=== PATIENT | female | born 1970 | race Caucasian/White ===

== ENCOUNTER 2021-06-17 16:50 | Inpatient (IN) ==
[2021-06-17] MEDS ORDERED: *HR* Heparin 5,000 UNIT/ML VIAL IVP PRN ×2 (23:03)
[2021-06-17] MEDS ORDERED: *HR* Heparin 5,000 UNIT/ML VIAL IVP ONE (23:03)
[2021-06-18 00:36] LABS: Heparin anti-factor XA UFH 0.39 IU/mL (0.30-0.70)
[2021-06-18 00:37] LABS: Hematocrit 35.2 % (35.3-44.9); INR 1.1; Mean Corpuscular HGB Conc 34.1 g/dL (31.6-35.5); Mean Corpuscular Hemoglobin 30.5 pg (28.0-33.3); Mean Corpuscular Volume 89.3 fL (83.0-100.0); Mean Platelet Volume 12.9 fL (9.4-12.4); Platelet Count 263 K/mcL (140-400); Prothrombin Time 12.3 Seconds (9.4-12.1); Red Blood Count 3.94 M/mcL (3.82-4.97); Red Cell Distribution Width 11.4 % (11.5-14.5)
[2021-06-18] MEDS: Heparin 25,000UNIT/250ML 1/2NS 25,000 UNIT/250 ML IV.SOLN IVC SCH ×2 (00:44→19:32)
[2021-06-18] MEDS ORDERED: Naloxone 0.4 MG/ML INJ IVP PRN (01:08)
[2021-06-18] MEDS ORDERED: Perflutren Lipid Microsphere 1.3 ML in 0.9 % Sodium Chloride 8.7 ML IVP PRN (02:02)
[2021-06-18] MEDS ORDERED: Nitroglycerin 0.4 MG TAB.SUBL SL PRN (02:02)
[2021-06-18 02:46] LABS: Alanine Aminotransferase 20 Units/L (7-52); Albumin/Globulin Ratio 1.3 (1.1-2.2); Alkaline Phosphatase 36 Units/L (34-104); Aspartate Amino Transferase 21 Units/L (13-39); BUN/Creatinine Ratio 15 (6-26); Bilirubin,Total 0.3 mg/dL (0.3-1.0); Blood Urea Nitrogen 12 mg/dL (6-20); Calcium 8.4 mg/dL (8.6-10.3); Carbon Dioxide 26 mEq/L (23-29); Chloride 107 mEq/L (98-107); Chol/HDL Ratio 5.2 (0-4.9); Cholesterol 173 mg/dL (< 200); Globulin 3.1 g/dL (2.4-3.5); Glucose 94 mg/dL (70-105); HDL Cholesterol 33 mg/dL (40-59); LDL Cholesterol,Calculated 76 mg/dL (< 100); Magnesium 2.1 mg/dL (1.6-2.6); Osmolality,Calculated 292 (280-300); Potassium 3.8 mEq/L (3.5-5.1); Sodium 141 mEq/L (136-145); Total Protein 7.1 g/dL (6.4-8.9); Triglycerides 322 mg/dL (< 150); Troponin I 1.12 ng/mL (< 0.04); eGFR For African Americans > 60 (> 60); eGFR For Non-African Americans > 60 (> 60)
[2021-06-18] MEDS ORDERED: D5% in Water 1,000 ML IVC PRN (02:50)
[2021-06-18] MEDS ORDERED: *HR* Dextrose 50 % in Water (Vial) 50 ML VIAL IVP PRN (02:50)
[2021-06-18] MEDS ORDERED: Dextrose Gel 15 GM/37.5 ML TUBE PO PRN ×2 (02:50)
[2021-06-18 03:19] LABS: Estimated Average Glucose 157 mg/dl; Hemoglobin A1C 7.1 %
[2021-06-18] MEDS: Insulin LISPRO 300 UNITS/3 ML VIAL SUBQ SCH ×4 (08:43→20:22)
[2021-06-18] MEDS: carvediloL 6.25 MG TABLET PO SCH ×2 (08:46→16:27)
[2021-06-18] MEDS: Aspirin 81 MG TAB.CHEW PO SCH (08:47)
[2021-06-18] MEDS ORDERED: Isosorbide MONOnitrate (24 HR) 30 MG TAB.ER.24H PO SCH (09:00)
[2021-06-18] MEDS: Acetaminophen 325 MG TABLET PO PRN ×2 (12:10→22:36)
[2021-06-18] MEDS: Ondansetron 4 MG/2 ML VIAL IVP PRN (13:18)
[2021-06-18] MEDS ORDERED: Loratadine 10 MG TABLET PO PRN (15:13)
[2021-06-18] MEDS: *HR* Promethazine 25 MG/ML VIAL IM PRN (16:28)
[2021-06-18] MEDS: Baclofen 10 MG TABLET PO SCH (20:22)
[2021-06-19 05:42] LABS: Hematocrit 36.7 % (35.3-44.9); Mean Corpuscular HGB Conc 32.7 g/dL (31.6-35.5); Mean Corpuscular Volume 91.8 fL (83.0-100.0); Platelet Count 242 K/mcL (140-400); Red Cell Distribution Width 11.4 % (11.5-14.5); White Blood Count 6.7 K/mcL (4.3-11.1)
[2021-06-19 06:00] LABS: BUN/Creatinine Ratio 16 (6-26); Blood Urea Nitrogen 14 mg/dL (6-20); Calcium 8.8 mg/dL (8.6-10.3); Carbon Dioxide 25 mEq/L (23-29); Chloride 107 mEq/L (98-107); Glucose 128 mg/dL (70-105); Osmolality,Calculated 292 (280-300); Potassium 3.9 mEq/L (3.5-5.1); Sodium 140 mEq/L (136-145); eGFR For African Americans > 60 (> 60); eGFR For Non-African Americans > 60 (> 60)
[2021-06-19] MEDS: Aspirin 81 MG TAB.CHEW PO SCH (07:26)
[2021-06-19] MEDS: Acetaminophen 325 MG TABLET PO PRN ×2 (07:26→19:11)
[2021-06-19] MEDS: Baclofen 10 MG TABLET PO SCH ×2 (07:26→20:25)
[2021-06-19] MEDS: carvediloL 6.25 MG TABLET PO SCH ×2 (07:27→15:40)
[2021-06-19] MEDS: Insulin LISPRO 300 UNITS/3 ML VIAL SUBQ SCH ×4 (07:27→21:15)
[2021-06-19] MEDS ORDERED: Isosorbide MONOnitrate (24 HR) 30 MG TAB.ER.24H PO SCH (09:00)
[2021-06-19] MEDS: Ondansetron 4 MG/2 ML VIAL IVP PRN (12:28)
[2021-06-19] MEDS ORDERED: hydrOXYzine pamoate 25 MG CAPSULE PO PRN (15:26)
[2021-06-19] MEDS: *HR* Promethazine 25 MG/ML VIAL IM PRN (15:40)
[2021-06-19] MEDS ORDERED: Ondansetron 4 MG/2 ML VIAL IVP PRN (17:32)
[2021-06-20 06:47] LABS: Hematocrit 36.1 % (35.3-44.9); Hemoglobin 12.3 g/dL (11.5-15.4); Mean Corpuscular HGB Conc 34.1 g/dL (31.6-35.5); Mean Corpuscular Hemoglobin 30.6 pg (28.0-33.3); Mean Corpuscular Volume 89.8 fL (83.0-100.0); Mean Platelet Volume 12.9 fL (9.4-12.4); Platelet Count 243 K/mcL (140-400); Red Blood Count 4.02 M/mcL (3.82-4.97); Red Cell Distribution Width 11.1 % (11.5-14.5); White Blood Count 5.6 K/mcL (4.3-11.1)
[2021-06-20] MEDS: Heparin 25,000UNIT/250ML 1/2NS 25,000 UNIT/250 ML IV.SOLN IVC SCH (06:55)
[2021-06-20] MEDS: Insulin LISPRO 300 UNITS/3 ML VIAL SUBQ SCH ×4 (07:07→22:21)
[2021-06-20] MEDS: Baclofen 10 MG TABLET PO SCH ×2 (07:33→20:33)
[2021-06-20] MEDS: carvediloL 6.25 MG TABLET PO SCH ×2 (07:33→17:23)
[2021-06-20] MEDS: Aspirin 81 MG TAB.CHEW PO SCH (07:33)
[2021-06-20 07:53] LABS: BUN/Creatinine Ratio 13 (6-26); Blood Urea Nitrogen 14 mg/dL (6-20); Carbon Dioxide 24 mEq/L (23-29); Chloride 105 mEq/L (98-107); Glucose 149 mg/dL (70-105); Osmolality,Calculated 291 (280-300); Sodium 139 mEq/L (136-145); eGFR For African Americans > 60 (> 60); eGFR For Non-African Americans 54 (> 60)
[2021-06-20 10:36] LABS: Creatine Kinase 90 Units/L (30-223)
[2021-06-20] MEDS ORDERED: 0.9 % Sodium Chloride 2,000 ML ONE (11:48)
[2021-06-20] MEDS ORDERED: *HR* Heparin 10,000 UNIT/10 ML VIAL ONE ×2 (11:49→12:22)
[2021-06-20] MEDS ORDERED: Nitroglycerin 1,000 MCG/5 ML VIAL IV ONE (11:49)
[2021-06-20] MEDS ORDERED: Heparin 1,000 UNITS/500 mL 500 ML ONE (11:49)
[2021-06-20] MEDS ORDERED: ISOVUE-370 200 ML INFUS..BTL ONE ×2 (11:49→12:44)
[2021-06-20] MEDS ORDERED: *HR* Midazolam HCl 2 MG/2 ML VIAL ONE (11:57)
[2021-06-20] MEDS ORDERED: *HR* FentaNYL (PF) 100 MCG/2 ML VIAL ONE ×2 (11:57→13:01)
[2021-06-20] MEDS ORDERED: *HR* Ticagrelor 90 MG TABLET ONE (12:22)
[2021-06-20] MEDS: *HR* Heparin 5,000 UNIT/ML VIAL SQ SCH (17:23)
[2021-06-20] MEDS: *HR* Ticagrelor 90 MG TABLET PO SCH (20:34)
[2021-06-21] MEDS: *HR* Heparin 5,000 UNIT/ML VIAL SQ SCH (05:34)
[2021-06-21 05:42] LABS: Hematocrit 34.7 % (35.3-44.9); Hemoglobin 11.9 g/dL (11.5-15.4); Mean Corpuscular HGB Conc 34.3 g/dL (31.6-35.5); Mean Corpuscular Hemoglobin 30.6 pg (28.0-33.3); Mean Corpuscular Volume 89.2 fL (83.0-100.0); Mean Platelet Volume 12.8 fL (9.4-12.4); Platelet Count 236 K/mcL (140-400); Red Blood Count 3.89 M/mcL (3.82-4.97); Red Cell Distribution Width 11.3 % (11.5-14.5); White Blood Count 7.7 K/mcL (4.3-11.1)
[2021-06-21 06:05] LABS: BUN/Creatinine Ratio 16 (6-26); Blood Urea Nitrogen 16 mg/dL (6-20); Calcium 8.4 mg/dL (8.6-10.3); Carbon Dioxide 26 mEq/L (23-29); Chloride 103 mEq/L (98-107); Glucose 158 mg/dL (70-105); Osmolality,Calculated 292 (280-300); Sodium 139 mEq/L (136-145); eGFR For African Americans > 60 (> 60); eGFR For Non-African Americans > 60 (> 60)
[2021-06-21] MEDS: Aspirin 81 MG TAB.CHEW PO SCH (07:11)
[2021-06-21] MEDS: carvediloL 6.25 MG TABLET PO SCH (07:11)
[2021-06-21] MEDS: *HR* Ticagrelor 90 MG TABLET PO SCH (07:11)
[2021-06-21] MEDS: Baclofen 10 MG TABLET PO SCH (07:11)
[2021-06-21] MEDS: Insulin LISPRO 300 UNITS/3 ML VIAL SUBQ SCH (07:12)
[2021-06-21] MEDS ORDERED: NORETHINDRONE AC ETH ESTRADIOL PO SCH (09:00)
[2021-06-21 10:54] VITALS: BP 146/80; PULSE 65; TEMP 98; O2SAT 96
== END 2021-06-21 11:51 | disposition home or self-care (01) | DRG 247 ==
LOC: 2ANU → SUATTDRO 19:19
PROVIDERS: ADMIT Student in an Organized Health Care Education/Training Program; ATTEND Family Medicine